=== PATIENT | male | born 1930 | race Caucasian/White ===

== ENCOUNTER 2016-07-08 19:48 | Emergency (ER) | payer MEDICARE, OTHER ==
[2016-07-08] MEDS ORDERED: Sodium Chloride 0.9% 10 ML Syringe FLUSH PRN (20:11)
[2016-07-08 20:14] VITALS: BP 149/54
[2016-07-08] MEDS ORDERED: Dextrose 5%-0.45% NaCl 1,000 ML IV SCH (20:15)
--- NOTE | 2016-07-08 21:20 | CT ---
Head CT Technique: Multiple axial sections through the brain were obtained. Intravenous contrast was not utilized. Comparison: No previous intracranial imaging. Findings: Ventricles along the basal cisterns and sulci over the convexities are moderately prominent. Several old lacunar infarcts are noted within the basal ganglia. Diminished density is noted within the periventricular white matter compatible with small vessel ischemic demyelination change. No other abnormal parenchymal densities are seen. No evidence of intracranial hemorrhage. No midline shift or mass effect is seen. Atherosclerotic calcification is seen within the vertebral vessels and within the carotid siphon. Mild to moderate mucosal thickening is noted within the maxillary and ethmoid sinuses as well as frontal sinuses and sphenoid sinus. Minimal mucosal thickening is seen inferiorly within the right mastoid sinus. Middle ear cavities are clear. No acute calvarial abnormality is identified. Impression: 1. Sinus findings likely chronic. 2. Senescent change as described above. 3. No acute intracranial abnormality is identified. Diagnostic code #2
--- NOTE | 2016-07-08 22:23 | EDM.PDOC ---
ED HPI DIABETIC EMERGENCY - General Chief Complaint: Diabetic Complaint Stated Complaint: [facility] Time Seen by Provider: 07/08/16 20:06 Source of Information: Reports: Patient, EMS, Family History Limitations: Reports: No limitations - History of Present Illness INITIAL COMMENTS - FREE TEXT/NARRATIVE: The patient presents post hyperglycemic episode with seizure. He got 5 units of insulin at 1630 for dinner. He did not eat much of his dinner and the was found on the floor not able to speak with a blood sugar of 54. He had 3 seizures lasting about 15 seconds each. When EMS arrived, his blood sugar was 58. They started an IV and gave him D50. When he arrived to our facility his blood sugar was 80 and he was talking and he said he feels better. He denies any pain. He has no fever, chills, chest pain, shortness of breath, or abdominal pain. He has not been this low before. Timing/Duration: Reports: Minutes: Location, General: Reports: generalized Severity: moderate Improves with: Reports: None Worsens with: Reports: None Associated Symptoms: Reports: cough. Denies: headaches, shortness of breath, fever/chills, loss of appetite, nausea/vomiting Most Recent Blood Sugar: 8 - Related Data Allergies/ADRs: Allergies Allergy/AdvReac Type Severity Reaction Status Date / Time No Known Allergies Allergy Verified 07/08/16 20:14 Home Meds: Home Meds Allopurinol 200 mg PO DAILY 11/21/14 [History] Carvedilol [Coreg] 6.25 mg PO BID 11/21/14 [History] Fluticasone Propionate [Flonase] 1 spray NASBOTH DAILY 11/21/14 [History] Furosemide [Lasix] 80 mg PO DAILY 11/21/14 [History] Insulin Aspart [NovoLOG] 4 units SQ ACLUNCH 11/21/14 [History] Insulin Glarg,Human.Rec.Analog [LantUS Solostar] 9 units SQ DAILY 11/21/14 [ History] Isosorbide Mononitrate [Imdur] 30 mg PO DAILY 11/21/14 [History] Melatonin 3 mg PO BEDTIME PRN 11/21/14 [History] PEG 400/Propylene Glycol [Systane Lubricant] 1 drop EYEBOTH BID 11/21/14 [ History] atorvaSTATin [Lipitor] 40 mg PO DAILY 11/21/14 [History] rOPINIRole HCl [Requip] 0.25 mg PO BID 11/21/14 [History] Polyethylene Glycol 3350 [MiraLAX] 17 gm PO DAILY 11/24/14 [History] Calcitriol [Rocaltrol] 0.25 mcg PO DAILY 11/22/15 [History] Cholecalciferol (Vitamin D3) [Vitamin D] 1,000 unit PO DAILY 11/22/15 [History] Insulin Aspart [Novolog] 5 unit SQ BID 11/22/15 [History] Magnesium Oxide 400 mg PO DAILY 11/22/15 [History] Pantoprazole [Protonix] 40 mg PO DAILY 11/22/15 [History] Glimepiride [Amaryl] 2 mg PO DAILY 12/04/15 [History] Acetaminophen 650 mg PO DAILY 03/24/16 [History] Aspirin 1 tab PO DAILY 03/24/16 [History] Dextromethorphan HBr [Tussin Cough] 15 mg PO QID 03/24/16 [History] Ferrous Sulfate 1 tab PO DAILY 03/24/16 [History] Furosemide [Lasix] 40 mg PO ACLUNCH 03/24/16 [History] Tamsulosin HCl 1 tab PO DAILY 03/24/16 [History] Apixaban [Eliquis] 2.5 mg PO BID #60 tablet 05/22/16 [Rx] Hydrocortisone [Hydrocortisone 2.5% Crm] 1 dose TOP BID 05/22/16 [History] Past Medical History HEENT History: Reports: Impaired vision Other HEENT History: USES GLASSES Cardiovascular History: Reports: Heart Failure, Hypertension, Other (see below) Other Cardiovascular History: Imlanted defibilator, hx Vtach, Respiratory History: Reports: Sleep apnea Other Respiratory History: persistant cough Genitourinary History: Reports: Other (see below) Other Genitourinary History: chronic renal insufficiency. Hasn't started Hemodialysis treatments YET. Musculoskeletal History: Reports: Other (see below) Other Musculoskeletal History: recent falling Neurological History: Reports: Neuropathy, peripheral Endocrine/Metabolic History: Reports: Diabetes, type II Other Endocrine/Metabolic History: GETS INSULIN BID Hematologic History: Reports: Iron deficiency Other Hematologic History: has gotten iron infusions. Oncologic (Cancer) History: Reports: Colon, Other (see below) Other Oncologic History: cancerous polyup removed. - Infectious Disease History Infectious Disease History: Reports: Chicken pox, Measles, Mumps - Past Surgical History HEENT Surgical History: Reports: Tonsillectomy Other Cardiovascular Surgeries/Procedures: PACEMAKER/AICD implantation GI Surgical History: Reports: Other (see below) Other GI Surgeries/Procedures: Colon resection, polyp removed. Other Musculoskeletal Surgeries/Procedures:: USES SINGLE POINT CANE Social & Family History - Family History Family Medical History: Noncontributory - Tobacco Use Smoking Status *Q: Never Smoker Second Hand Smoke Exposure: No - Caffeine Use Caffeine Use: Reports: Coffee - Recreational Drug Use Recreational Drug Use: No - Living Situation & Occupation Living situation: Reports: Occupation: retired ED ROS GENERAL - Review of Systems Review Of Systems: See Below Constitutional: Reports: no symptoms HEENT: Reports: No symptoms Respiratory: Reports: No Symptoms Cardiovascular: Reports: No symptoms Endocrine: Reports: no symptoms GI/Abdominal: Reports: No symptoms : Reports: no symptoms Musculoskeletal: Reports: no symptoms Skin: Reports: no symptoms ED EXAM GENERAL NO PERIP PULSE - Physical Exam Exam: See Below Exam Limited By: No limitations General Appearance: alert, no apparent distress Ears: normal external exam Nose: normal inspection Throat/Mouth: Other (Abrasion to his lower lip) Head: atraumatic, normocephalic Neck: normal inspection Respiratory/Chest: no respiratory distress, lungs clear, normal breath sounds Cardiovascular: regular rate, rhythm, no edema, no murmur GI/Abdominal: soft, non tender, no organomegaly, no mass Extremities: normal inspection Neurological: alert, oriented, no motor/sensory deficits EKG INTERPRETATION EKG Date: 07/08/16 Time: 20:32 Rhythm: a-fib Rate (beats/min): 73 [place]: normal QRS: normal ST-T: normal QT: normal EKG Interpretation Comments: PVCs Course - Vital Signs Last Recorded V/S: Last Vital Signs Temp 97.7 F 07/08/16 19:55 Pulse 62 07/08/16 19:55 Resp 18 07/08/16 19:55 BP 149/54 H 07/08/16 19:55 Pulse Ox 94 L 07/08/16 19:55 - Orders/Labs/Meds Orders: Active Orders 24 hr Category Date Time Status Cardiac Monitoring [RC] . DIRECTED Care 07/08/16 20:11 Active EKG Documentation Completion [RC] STAT Care 07/08/16 20:12 Active Peripheral IV Care [RC] . DIRECTED Care 07/08/16 20:12 Active Dextrose 5%-0.45% NaCl [Dextrose 5%-1/2 NS] 1,000 ml Med 07/08/16 20:15 Active IV ASDIRECTED Sodium Chloride 0.9% [Saline Flush] Med 07/08/16 20:11 Active 10 ml FLUSH ASDIRECTED PRN Peripheral IV Insertion Adult [OM.PC] Stat Oth 07/08/16 20:11 Ordered Medication Orders Dextrose/Sodium Chloride (Dextrose 5%-1/2 Ns) 1,000 mls @ 125 mls/hr IV ASDIRECTED ISAK Last Admin: 07/08/16 20:45 Dose: 125 mls/hr Sodium Chloride (Saline Flush) 10 ml FLUSH ASDIRECTED PRN PRN Reason: Keep Vein Open Last Admin: 07/08/16 20:45 Dose: 10 ml Labs: Laboratory Tests 07/08/16 07/08/16 07/08/16 Range/Units 20:05 20:20 20:20 WBC 2.32 L* (4.23-9.07) K/mm3 RBC 4.36 L (4.63-6.08) M/mm3 Hgb 12.3 L (13.7-17.5) gm/L Hct 40.0 L (40.1-51.0) % MCV 91.7 (79.0-92.2) fl MCH 28.2 (25.7-32.2) pg MCHC 30.8 L (32.2-35.5) g/dl RDW Std Deviation 52.2 H (35.1-43.9) fL Plt Count 79 L (163-337) K/mm3 MPV 12.2 (9.4-12.3) fl Neut % (Auto) 61.6 (34.0-67.9) % Lymph % (Auto) 17.2 L (21.8-53.1) % [place] % (Auto) 15.1 H (5.3-12.2) % Eos % (Auto) 4.3 (0.8-7.0) Baso % (Auto) 0.9 (0.1-1.2) % Neut # 1.43 L (1.78-5.38) K/mm3 Lymph # 0.40 L (1.32-3.57) K/mm3 [place] # 0.35 (0.30-0.82) K/mm3 Eos # 0.10 (0.04-0.54) K/mm3 Baso # 0.02 (0.01-0.08) K/mm3 Manual Slide Review Abnormal smear Sodium 140 (136-145) mEq/L Potassium 3.7 (3.5-5.1) mEq/L Chloride 103 (98-107) mEq/L Carbon Dioxide 32 (21-32) mEq/L Anion Gap 8.7 (5-15) BUN 53 H (7-18) mg/dL Creatinine 2.3 H (0.7-1.3) mg/dL Est Cr Clr Drug Dosing TNP Estimated GFR (MDRD) 27 (>60) mL/min BUN/Creatinine Ratio 23.0 H (14-18) Glucose 72 L (83-115) mg/dL POC Glucose 80 L (83-110) mg/dL Calcium 8.8 (8.5-10.1) mg/dL Total Bilirubin 2.1 H (0.2-1.0) mg/dL AST 67 H (15-37) U/L ALT 42 (16-63) U/L Alkaline Phosphatase 133 H (46-116) U/L Troponin I 0.091 H* (0.00-0.056) ng/mL Total Protein 6.8 (6.4-8.2) g/dl Albumin 3.4 (3.4-5.0) g/dl Globulin 3.4 gm/dL Albumin/Globulin Ratio 1.0 (1-2) Urine Color (Yellow) Urine Appearance (Clear) Urine pH (5.0-8.0) Ur Specific [place] (1.005-1.030) Urine Protein (Negative) Urine Glucose (UA) (Negative) Urine Ketones (Negative) Urine Occult Blood (Negative) Urine Nitrite (Negative) Urine Bilirubin (Negative) Urine Urobilinogen (0.2-1.0) Ur Leukocyte Esterase (Negative) Urine RBC (0-5) /hpf Urine WBC (0-5) /hpf Ur Epithelial Cells (0-5) /hpf Urine Bacteria (FEW) /hpf Urine Mucus (FEW) /hpf 07/08/16 07/08/16 Range/Units 21:50 22:11 WBC (4.23-9.07) K/mm3 RBC (4.63-6.08) M/mm3 Hgb (13.7-17.5) gm/L Hct (40.1-51.0) % MCV (79.0-92.2) fl MCH (25.7-32.2) pg MCHC (32.2-35.5) g/dl RDW Std Deviation (35.1-43.9) fL Plt Count (163-337) K/mm3 MPV (9.4-12.3) fl Neut % (Auto) (34.0-67.9) % Lymph % (Auto) (21.8-53.1) % [place] % (Auto) (5.3-12.2) % Eos % (Auto) (0.8-7.0) Baso % (Auto) (0.1-1.2) % Neut # (1.78-5.38) K/mm3 Lymph # (1.32-3.57) K/mm3 [place] # (0.30-0.82) K/mm3 Eos # (0.04-0.54) K/mm3 Baso # (0.01-0.08) K/mm3 Manual Slide Review Sodium (136-145) mEq/L Potassium (3.5-5.1) mEq/L Chloride (98-107) mEq/L Carbon Dioxide (21-32) mEq/L Anion Gap (5-15) BUN (7-18) mg/dL Creatinine (0.7-1.3) mg/dL Est Cr Clr Drug Dosing Estimated GFR (MDRD) (>60) mL/min BUN/Creatinine Ratio (14-18) Glucose (83-115) mg/dL POC Glucose 105 (83-110) mg/dL Calcium (8.5-10.1) mg/dL Total Bilirubin (0.2-1.0) mg/dL AST (15-37) U/L ALT (16-63) U/L Alkaline Phosphatase (46-116) U/L Troponin I (0.00-0.056) ng/mL Total Protein (6.4-8.2) g/dl Albumin (3.4-5.0) g/dl Globulin gm/dL Albumin/Globulin Ratio (1-2) Urine Color Light yellow (Yellow) Urine Appearance Clear (Clear) Urine pH 6.0 (5.0-8.0) Ur Specific [place] 1.015 (1.005-1.030) Urine Protein 1+ H (Negative) Urine Glucose (UA) Negative (Negative) Urine Ketones Negative (Negative) Urine Occult Blood 1+ H (Negative) Urine Nitrite Negative (Negative) Urine Bilirubin Negative (Negative) Urine Urobilinogen 0.2 (0.2-1.0) Ur Leukocyte Esterase Negative (Negative) Urine RBC 0-5 (0-5) /hpf Urine WBC 0-5 (0-5) /hpf Ur Epithelial Cells Not seen (0-5) /hpf Urine Bacteria Rare (FEW) /hpf Urine Mucus Not seen (FEW) /hpf Meds: Medications Generic Name Dose Route Start Last Admin Trade Name Freq PRN Reason Stop Dose Admin Dextrose/Sodium Chloride 1,000 mls @ 125 mls/hr 07/08/16 20:15 07/08/16 20:45 Dextrose 5%-1/2 Ns IV 125 mls/hr ASDIRECTED ISAK Administration Sodium Chloride 10 ml 07/08/16 20:11 07/08/16 20:45 Saline Flush FLUSH 10 ml ASDIRECTED PRN Administration Keep Vein Open - Re-Assessments/Exams Free Text/Narrative Re-Assessment/Exam: 07/08/16 22:26 I ordered an IV D5 1/4 NS at 125. My nurse gave him orange juice and some sugar packets. His WBC was low at 2.32. That is low and his doctor is watching that and possibly doing a bone marrow biopsy. His Hgb is a little low at 12.3. His Platelets are low at 79. His creatinine is elevated at 2.3. His glucose is still low at 72. I will give him something more to eat. His troponin is elevated at 0.091. This is from his renal disease. His UA shows no UTI. 07/08/16 22:39 I will reduce his lantus to 8units daily down from 9. I will reduce his evening novolog to 4 and morning to 4 units. Departure - Departure Time of Disposition: 22:40 Disposition: Home, Self-Care 01 Condition: good Clinical Impression: Hypoglycemia, Seizure, Thrombocytopenia, Troponin level elevated, Renal insufficiency Leukopenia Qualifiers: Leukopenia type: neutropenia Neutropenia type: unspecified Qualified Code(s): D70.9 - Neutropenia, unspecified Referrals: Osman Sifuentes MD [Primary Care Provider] - 1 Week Forms: ED Department Discharge Additional Instructions: Reduce your lantus to 8 units daily. Take the novolog before each meal and only take 4 units. Please return if you are worse. - My Orders Last 24 Hours: My Active Orders 07/08/16 20:11 Cardiac Monitoring [RC] . DIRECTED Sodium Chloride 0.9% [Saline Flush] 10 ml FLUSH ASDIRECTED PRN Peripheral IV Insertion Adult [OM.PC] Stat 07/08/16 20:12 EKG Documentation Completion [RC] STAT Peripheral IV Care [RC] . DIRECTED 07/08/16 20:15 Dextrose 5%-0.45% NaCl [Dextrose 5%-1/2 NS] 1,000 ml IV ASDIRECTED - Assessment/Plan Last 24 Hours: My Active Orders 07/08/16 20:11 Cardiac Monitoring [RC] . DIRECTED Sodium Chloride 0.9% [Saline Flush] 10 ml FLUSH ASDIRECTED PRN Peripheral IV Insertion Adult [OM.PC] Stat 07/08/16 20:12 EKG Documentation Completion [RC] STAT Peripheral IV Care [RC] . DIRECTED 07/08/16 20:15 Dextrose 5%-0.45% NaCl [Dextrose 5%-1/2 NS] 1,000 ml IV ASDIRECTED
== END 2016-07-08 23:10 | disposition home or self-care (01) ==
LOC: JD.ED 19:48
DX: E11.649 Type 2 diabetes mellitus with hypoglycemia without coma (principal); R56.9 Unspecified convulsions; D70.9 Neutropenia, unspecified; D69.6 Thrombocytopenia, unspecified; R79.89 Other specified abnormal findings of blood chemistry; I50.9 Heart failure, unspecified; I10 Essential (primary) hypertension; I12.9 Hypertensive chronic kidney disease with stage 1 through stage 4 chronic kidney disease, or unspecified chronic kidney disease; N18.9 Chronic kidney disease, unspecified; G62.9 Polyneuropathy, unspecified; E61.1 Iron deficiency; Z79.4 Long term (current) use of insulin; Z79.899 Other long term (current) drug therapy; Z95.810 Presence of automatic (implantable) cardiac defibrillator
CPT/HCPCS: 36415; 70450; 80053; 81001; 82962; 84484; 85025; 93005; J7042; J7050; 96360; 96361; 99284; 99285-25

== ENCOUNTER 2017-07-17 12:45 | Emergency (ER) | payer MEDICARE, OTHER ==
[2017-07-17 13:13] VITALS: BP 116/57
[2017-07-17] MEDS ORDERED: Sodium Chloride 0.9% 10 ML Syringe FLUSH PRN (14:10)
--- NOTE | 2017-07-17 14:14 | EDM.PDOC ---
ED HPI GENERAL MEDICAL PROBLEM - General Chief Complaint: Skin Complaint Stated Complaint: FEVER, SORE ON LEFT HAND Time Seen by Provider: 07/17/17 14:00 Source of Information: Reports: Patient History Limitations: Reports: No Limitations - History of Present Illness INITIAL COMMENTS - FREE TEXT/NARRATIVE: 87-year-old male presents for evaluation and treatment of a sore to the left hand and a fever. Reportedly the patient fell approximately 1 week ago. Apparently he is a resident of [facility]. Another resident in from and fell causing him to fall. They believe he hit his hand on his walker. He now has an open area, swelling, increased warmth and redness to the left hand. He has decreased range of motion is unable to make a fist. Reportedly has a temperature [facility], his daughters provided most the history, and they are unsure how high his temperature was. They report that Trudi called around 11 AM today. It did take the walking clinic both sent to us. Reports he has had a productive cough the last 1-2 weeks. No nausea or vomiting. Per [facility] reports to the daughter his blood pressure was running high. He is on medications for hypertension. The patient is a diabetic. Patient has a fistula to the left arm, not currently on dialysis. This was placed in case he needed dialysis. Location: Reports: Upper Extremity, Left - Related Data Allergies Allergy/AdvReac Type Severity Reaction Status Date / Time No Known Allergies Allergy Verified 07/17/17 13:13 Home Meds: Home Meds Allopurinol 200 mg PO DAILY 11/21/14 [History] Carvedilol [Coreg] 6.25 mg PO BID 11/21/14 [History] Fluticasone Propionate [Flonase] 1 spray NASBOTH DAILY 11/21/14 [History] Furosemide [Lasix] 80 mg PO DAILY 11/21/14 [History] Insulin Glarg,Human.Rec.Analog [LantUS Solostar] 8 units SQ DAILY 11/21/14 [ History] Isosorbide Mononitrate [Imdur] 30 mg PO DAILY 11/21/14 [History] Melatonin 3 mg PO BEDTIME PRN 11/21/14 [History] PEG 400/Propylene Glycol [Systane Lubricant] 1 drop EYEBOTH BID 11/21/14 [ History] atorvaSTATin [Lipitor] 40 mg PO DAILY 11/21/14 [History] rOPINIRole HCl [Requip] 0.25 mg PO BID 11/21/14 [History] Polyethylene Glycol 3350 [MiraLAX] 17 gm PO DAILY 11/24/14 [History] Calcitriol [Rocaltrol] 0.25 mcg PO DAILY 11/22/15 [History] Cholecalciferol (Vitamin D3) [Vitamin D] 1,000 unit PO DAILY 11/22/15 [History] Magnesium Oxide 400 mg PO DAILY 11/22/15 [History] Pantoprazole [ProTONIX] 40 mg PO DAILY 11/22/15 [History] Glimepiride [Amaryl] 2 mg PO DAILY 12/04/15 [History] Acetaminophen 650 mg PO Q6HR PRN 03/24/16 [History] Aspirin 1 tab PO DAILY 03/24/16 [History] Dextromethorphan HBr [Tussin Cough] 15 mg PO QID PRN 03/24/16 [History] Ferrous Sulfate 1 tab PO DAILY 03/24/16 [History] Furosemide [Lasix] 40 mg PO BEDTIME 03/24/16 [History] Tamsulosin HCl 1 tab PO DAILY 03/24/16 [History] Apixaban [Eliquis] 2.5 mg PO BID #60 tablet 05/22/16 [Rx] Hydrocortisone [Hydrocortisone 2.5% Crm] 1 dose TOP BID 05/22/16 [History] Insulin Aspart [Novolog Flexpen] 6 units SQ TIDMEALS 07/17/17 [History] amLODIPine Besylate [Norvasc] 5 mg PO DAILY 07/17/17 [History] Past Medical History HEENT History: Reports: Impaired Vision Other HEENT History: USES GLASSES Cardiovascular History: Reports: Afib, Cardiomyopathy, Heart Failure, High Cholesterol, Hypertension, Pacemaker, Other (See Below) Other Cardiovascular History: Imlanted defibilator, hx Vtach, Respiratory History: Reports: Sleep Apnea Other Respiratory History: persistant cough Genitourinary History: Reports: Other (See Below) Other Genitourinary History: chronic renal insufficiency. Hasn't started Hemodialysis treatments YET. Musculoskeletal History: Reports: Other (See Below) Other Musculoskeletal History: recent falling Neurological History: Reports: Neuropathy, Peripheral Endocrine/Metabolic History: Reports: Diabetes, Type II Other Endocrine/Metabolic History: GETS INSULIN BID Hematologic History: Reports: Iron Deficiency, Other (See Below) Other Hematologic History: low vitamin D Oncologic (Cancer) History: Reports: Colon Other Oncologic History: cancerous polyup removed. - Infectious Disease History Infectious Disease History: Reports: Chicken Pox, Measles, Mumps - Past Surgical History GI Surgical History: Reports: Other (See Below) Social & Family History - Family History Family Medical History: Noncontributory - Tobacco Use Smoking Status *Q: Never Smoker Second Hand Smoke Exposure: No - Caffeine Use Caffeine Use: Reports: Coffee - Recreational Drug Use Recreational Drug Use: No - Living Situation & Occupation Living situation: Reports: Occupation: Retired ED ROS GENERAL - Review of Systems Review Of Systems: See Below Constitutional: Reports: Fever Respiratory: Reports: Cough, Sputum GI/Abdominal: Denies: Abdominal Pain, Nausea, Vomiting Musculoskeletal: Reports: Hand Pain, Joint Swelling (hand) Skin: Reports: Pruritis (left buttocks and left elbow), Wound (left hand) Neurological: Denies: Numbness, Tingling ED EXAM, SKIN/RASH Exam: See Below Exam Limited By: No Limitations General Appearance: Alert, WD/WN, No Apparent Distress Ears: Normal External Exam Throat/Mouth: Normal Inspection, Normal Voice, No Airway Compromise Respiratory/Chest: No Respiratory Distress, Lungs Clear, Normal Breath Sounds Cardiovascular: Normal Peripheral Pulses, No Murmur, Irregularly Irregular GI/Abdominal: Normal Bowel Sounds, Soft, Non-Tender Extremities: Normal Capillary Refill, Other (left hand swelling, erythema to the left hand and forearm; limited ROM to the left hand - unable to make a fist ; palpable thrill to the left forearm from fistula) Neurological: Alert, Oriented, Normal Cognition Psychiatric: Normal Affect, Normal Mood Skin: Warm, Dry, Erythema, Wound/Incision (approximately 2cm in diameter open wound to the dorsal left hand) Location, Skin: Upper Extremity, Left Associated features: Warmth, Tenderness, Swelling, Weeping (clear fluid) Course - Vital Signs Last Recorded V/S: Last Vital Signs Temp 37.4 C 07/17/17 13:10 Pulse 70 07/17/17 13:10 Resp 18 07/17/17 13:10 BP 116/57 L 07/17/17 13:10 Pulse Ox 97 07/17/17 13:10 - Orders/Labs/Meds Orders: Active Orders 24 hr Category Date Time Status Cardiac Monitoring [RC] . DIRECTED Care 07/17/17 14:11 Active Peripheral IV Care [RC] . DIRECTED Care 07/17/17 14:10 Active Chest 2V [CR] Stat Exams 07/17/17 14:10 Taken Hand Comp Min 3V Lt [CR] Stat Exams 07/17/17 14:10 Taken CULTURE BLOOD [BC] Stat Lab 07/17/17 15:00 Received CULTURE BLOOD [BC] Stat Lab 07/17/17 15:10 Received CULTURE WOUND [RM] Stat Lab 07/17/17 14:10 Received UA W/MICROSCOPIC [URIN] Stat Lab 07/17/17 15:43 Ordered Sodium Chloride 0.9% [Normal Saline] 1,000 ml Med 07/17/17 17:11 Ordered IV ONETIME Sodium Chloride 0.9% [Saline Flush] Med 07/17/17 14:10 Active 10 ml FLUSH ASDIRECTED PRN Blood Culture x2 Reflex Set [OM.PC] Stat Oth 07/17/17 14:10 Ordered Peripheral IV Insertion Adult [OM.PC] Routine Oth 07/17/17 14:09 Ordered Medication Orders Sodium Chloride (Normal Saline) 1,000 mls @ 100 mls/hr IV ONETIME ONE Stop: 07/18/17 03:10 Last Admin: 07/17/17 17:24 Dose: 100 mls/hr Sodium Chloride (Saline Flush) 10 ml FLUSH ASDIRECTED PRN PRN Reason: Keep Vein Open Last Admin: 07/17/17 14:27 Dose: 10 ml Labs: Laboratory Tests 07/17/17 07/17/17 07/17/17 Range/Units 14:20 14:20 15:00 WBC 16.28 H (4.23-9.07) K/mm3 RBC 4.03 L (4.63-6.08) M/mm3 Hgb 12.5 L (13.7-17.5) gm/L Hct 39.0 L (40.1-51.0) % MCV 96.8 H (79.0-92.2) fl MCH 31.0 (25.7-32.2) pg MCHC 32.1 L (32.2-35.5) g/dl RDW Std Deviation 49.4 H (35.1-43.9) fL Plt Count 117 L (163-337) K/mm3 MPV 9.7 (9.4-12.3) fl Neutrophils % (Manual) 78 H (40-60) % Band Neutrophils % 0 (0-10) % Lymphocytes % (Manual) 17 L (20-40) % Atypical Lymphs % 0 % Monocytes % (Manual) 5 (2-10) % Eosinophils % (Manual) 0 L (0.8-7.0) % Basophils % (Manual) 0 L (0.2-1.2) Platelet Estimate Decreased Plt Morphology Comment See note Poikilocytosis 1+ slight Anisocytosis 1+ slight Ovalocytes 1+ slight RBC Morph Comment Not Reportable Sodium 135 L (136-145) mEq/L Potassium 4.5 (3.5-5.1) mEq/L Chloride 98 (98-107) mEq/L Carbon Dioxide 33 H (21-32) mEq/L Anion Gap 8.5 (5-15) BUN 50 H (7-18) mg/dL Creatinine 2.3 H (0.7-1.3) mg/dL Est Cr Clr Drug Dosing 21.48 mL/min Estimated GFR (MDRD) 27 (>60) mL/min BUN/Creatinine Ratio 21.7 H (14-18) Glucose 84 (83-115) mg/dL Lactic Acid 1.5 (0.4-2.0) mmol/L Calcium 8.8 (8.5-10.1) mg/dL Total Bilirubin 3.4 H (0.2-1.0) mg/dL AST 27 (15-37) U/L ALT 27 (16-63) U/L Alkaline Phosphatase 104 (46-116) U/L C-Reactive Protein 11.0 H* (<1.0) mg/dL Total Protein 6.1 L (6.4-8.2) g/dl Albumin 2.5 L (3.4-5.0) g/dl Globulin 3.6 gm/dL Albumin/Globulin Ratio 0.7 L (1-2) Meds: Medications Generic Name Dose Route Start Last Admin Trade Name Freq PRN Reason Stop Dose Admin Sodium Chloride 1,000 mls @ 100 mls/hr 07/17/17 17:11 07/17/17 17:24 Normal Saline IV 07/18/17 03:10 100 mls/hr ONETIME ONE Administration Sodium Chloride 10 ml 07/17/17 14:10 07/17/17 14:27 Saline Flush FLUSH 10 ml ASDIRECTED PRN Administration Keep Vein Open Discontinued Medications Generic Name Dose Route Start Last Admin Trade Name Jagdeep PRN Reason Stop Dose Admin Clindamycin Phosphate 600 mg/ 104 mls @ 100 mls/hr 07/17/17 15:03 07/17/17 15 :13 Sodium Chloride IV 07/17/17 16:05 100 mls/hr ONETIME ONE Administration - Re-Assessments/Exams Free Text/Narrative Re-Assessment/Exam: 07/17/17 17:20 Influenza returned positive for type A. Blood cultures are pending. Wound cultures pending. Reviewed the patient's records show his creatinine has been around the lower twos. Discussed the case with Dr. Reno, hospice on-call. She refuses the admission. She would like him to be sent where he can be evaluated by hand surgeon. Parents discuss with the patient's daughters. They would like to go to [facility]. Patient sees nephrology cardiology at [facility]. 07/17/17 17:[address] Segura, hospitalist on-call [facility]. He agrees to accept the patient. 07/17/17 18:03 Staff had him get up and use the commode. He has a small bowel movement and urinated. They did appreciate some bruising to his buttocks, likely from his fall earlier in the week. Temp rechecked and was 98. Departure - Departure Time of Disposition: 18:07 Disposition: DC/Tfer to Acute Hospital 02 Condition: Fair Clinical Impression: Cellulitis, Influenza B, Renal insufficiency, Diabetes - Discharge Information Referrals: Osman Sifuentes MD [Primary Care Provider] - Forms: ED Department Discharge Additional Instructions: Patient to be transported by ground EMS to [facility]. Hospitalist , Dr. De La Rosa accepting. He is a direct admission. - My Orders Last 24 Hours: My Active Orders 07/17/17 14:09 Peripheral IV Insertion Adult [OM.PC] Routine 07/17/17 14:10 Peripheral IV Care [RC] . DIRECTED Chest 2V [CR] Stat Hand Comp Min 3V Lt [CR] Stat CULTURE WOUND [RM] Stat Sodium Chloride 0.9% [Saline Flush] 10 ml FLUSH ASDIRECTED PRN Blood Culture x2 Reflex Set [OM.PC] Stat 07/17/17 14:11 Cardiac Monitoring [RC] . DIRECTED 07/17/17 15:00 CULTURE BLOOD [BC] Stat 07/17/17 15:10 CULTURE BLOOD [BC] Stat 07/17/17 15:43 UA W/MICROSCOPIC [URIN] Stat 07/17/17 17:11 Sodium Chloride 0.9% [Normal Saline] 1,000 ml IV ONETIME - Assessment/Plan Last 24 Hours: My Active Orders 07/17/17 14:09 Peripheral IV Insertion Adult [OM.PC] Routine 07/17/17 14:10 Peripheral IV Care [RC] . DIRECTED Chest 2V [CR] Stat Hand Comp Min 3V Lt [CR] Stat CULTURE WOUND [RM] Stat Sodium Chloride 0.9% [Saline Flush] 10 ml FLUSH ASDIRECTED PRN Blood Culture x2 Reflex Set [OM.PC] Stat 07/17/17 14:11 Cardiac Monitoring [RC] . DIRECTED 07/17/17 15:00 CULTURE BLOOD [BC] Stat 07/17/17 15:10 CULTURE BLOOD [BC] Stat 07/17/17 15:43 UA W/MICROSCOPIC [URIN] Stat 07/17/17 17:11 Sodium Chloride 0.9% [Normal Saline] 1,000 ml IV ONETIME
[2017-07-17] MEDS ORDERED: Clindamycin Phosphate 600 MG in Sodium Chloride 0.9% 100 ML IV ONE (15:03)
[2017-07-17] MEDS ORDERED: Sodium Chloride 0.9% 1,000 ML IV ONE (17:11)
--- NOTE | 2017-07-18 12:48 | CR ---
Left hand: Four views of the left hand were obtained. Comparison: No prior hand exam. Soft tissue swelling is identified. Vascular calcification is noted. Joint space narrowing is scattered within the MCP, PIP and DIP joints. Calcifications are seen off the distal second metacarpal head as well as at the base of the proximal phalanx of the fifth digit which are dystrophic and incidental. Small metallic foreign body is projected at the base of the thumb. No acute bony abnormality is seen. Impression: 1. Degenerative change and other incidental findings. No acute bony abnormality is seen. Diagnostic code #2
--- NOTE | 2017-07-18 12:48 | CR ---
Chest: Two views of the chest are obtained. Comparison: Prior chest x-ray of 05/22/16. Heart is enlarged. Pulmonary vessels are slightly congested. Lungs otherwise are clear. AICD is present. Diaphragms are flattened on the lateral view compatible with emphysematous change. Degenerative spurring is noted within the spine. Atherosclerotic change is seen within the thoracic aorta. Impression: 1. Emphysematous change. 2. Cardiomegaly and slight pulmonary vascular congestion. 3. Other incidental findings. Diagnostic code #3
== END 2017-07-17 18:10 ==
LOC: JD.ED 12:45
DX: L03.114 Cellulitis of left upper limb (principal); J10.1 Influenza due to other identified influenza virus with other respiratory manifestations; N28.9 Disorder of kidney and ureter, unspecified; E11.9 Type 2 diabetes mellitus without complications; I11.0 Hypertensive heart disease with heart failure; I50.9 Heart failure, unspecified; I48.91 Unspecified atrial fibrillation; Z79.82 Long term (current) use of aspirin; Z79.4 Long term (current) use of insulin; Z79.899 Other long term (current) drug therapy
CPT/HCPCS: 36415; 71046; 73130; 80053; 83605; 85025; 86140; 87040; 87070; 87077; 87184; 87186; 87804; 96361; 96365; 99285; J7030; J7040; J7050; 99284

== ENCOUNTER 2017-09-14 09:21 | Emergency (ER) | payer MEDICARE, OTHER ==
[2017-09-14] MEDS ORDERED: cefTRIAXone 2 GM in Sodium Chloride 0.9% 100 ML IV ONE (10:28)
--- NOTE | 2017-09-14 13:22 | EDM.PDOC ---
ED HPI GENERAL MEDICAL PROBLEM - General Chief Complaint: Respiratory Problem Stated Complaint: SENT BY DR. BARONE Time Seen by Provider: 09/14/17 10:28 Source of Information: Reports: Patient, Family (Son, [id number], grandson) History Limitations: Reports: Physical Impairment (Some confusion) - History of Present Illness INITIAL COMMENTS - FREE TEXT/NARRATIVE: Significant delay in evaluating the patient due to managing a critically ill patient in trauma 2. The patient's family states that the patient was admitted to [facility] on 07/17/2017 for influenza B and a hand infection. He states for 3-4 days. They state that he since developed a dry cough 1-2 weeks ago. No recent fever, chest pain, palpitations, nausea, vomiting, constipation, or diarrhea. The patient has had dyspnea on exertion for the past 5-6 months. The patient was seen by his PCP, Dr. Barone, this morning. A chest radiograph apparently demonstrated a left lower lobe infiltrate, although we do not have access to that chest radiograph image. According to the patient's family, no blood work was done. The patient was directed to the ED to arrange for admission to the hospital. Shortly after arrival to the ED, the patient was started on IV Rocephin. - Related Data Allergies Allergy/AdvReac Type Severity Reaction Status Date / Time No Known Allergies Allergy Verified 09/14/17 09:48 Home Meds: Home Meds Allopurinol 200 mg PO DAILY 11/21/14 [History] Carvedilol [Coreg] 6.25 mg PO BID 11/21/14 [History] Fluticasone Propionate [Flonase] 1 spray NASBOTH DAILY 11/21/14 [History] Furosemide [Lasix] 80 mg PO DAILY 11/21/14 [History] Insulin Glarg,Human.Rec.Analog [LantUS Solostar] 8 units SQ DAILY 11/21/14 [ History] Isosorbide Mononitrate [Imdur] 30 mg PO DAILY 11/21/14 [History] Melatonin 3 mg PO BEDTIME PRN 11/21/14 [History] atorvaSTATin [Lipitor] 40 mg PO DAILY 11/21/14 [History] rOPINIRole HCl [Requip] 0.25 mg PO BID 11/21/14 [History] Calcitriol [Rocaltrol] 0.25 mcg PO DAILY 11/22/15 [History] Cholecalciferol (Vitamin D3) [Vitamin D] 1,000 unit PO DAILY 11/22/15 [History] Magnesium Oxide 400 mg PO DAILY 11/22/15 [History] Pantoprazole [ProTONIX] 40 mg PO DAILY 11/22/15 [History] Glimepiride [Amaryl] 2 mg PO DAILY 12/04/15 [History] Acetaminophen 650 mg PO Q6HR PRN 03/24/16 [History] Aspirin 81 mg PO DAILY 03/24/16 [History] Dextromethorphan HBr [Tussin Cough] 15 mg PO QID PRN 03/24/16 [History] Ferrous Sulfate 325 mg PO DAILY 03/24/16 [History] Furosemide [Lasix] 40 mg PO BEDTIME 03/24/16 [History] Tamsulosin HCl 0.4 mg PO DAILY 03/24/16 [History] Insulin Aspart [Novolog Flexpen] 4 units SQ TIDMEALS 07/17/17 [History] Azithromycin [Zithromax] 1 tab PO DAILY #4 tab 09/14/17 [Rx] Polyethylene Glycol 3350 [MiraLAX] 17 gm PO DAILY 09/14/17 [History] Propylene Glycol/Peg 400 [Systane 0.3-0.4% Eye Drops] 1 drop EYEBOTH BID [History] Past Medical History HEENT History: Reports: Impaired Vision Other HEENT History: USES GLASSES Cardiovascular History: Reports: Afib (chronic), Arrhythmia (V-tach), CAD, Heart Failure, High Cholesterol, Hypertension Respiratory History: Reports: Sleep Apnea Genitourinary History: Reports: Chronic Renal Insuffiency Musculoskeletal History: Reports: Gout Neurological History: Reports: Neuropathy, Diabetic Endocrine/Metabolic History: Reports: Diabetes, Type II, Vitamin D Deficiency Hematologic History: Reports: Iron Deficiency - Infectious Disease History Infectious Disease History: Reports: Chicken Pox, Measles, Mumps - Past Surgical History HEENT Surgical History: Reports: Cataract Surgery, Tonsillectomy Cardiovascular Surgical History: Reports: AICD, Coronary Artery Stent (x 1), Vascular Surgery (left forearm AVF) GI Surgical History: Reports: Colonoscopy Social & Family History - Family History Family Medical History: Noncontributory - Tobacco Use Smoking Status *Q: Never Smoker Second Hand Smoke Exposure: No - Caffeine Use Caffeine Use: Reports: None - Alcohol Use Alcohol Use History: Yes Alcohol Use Frequency: Rarely - Recreational Drug Use Recreational Drug Use: No - Living Situation & Occupation Living situation: Reports: , Assisted Living ([place]) Occupation: Retired ED ROS GENERAL - Review of Systems Review Of Systems: ROS reveals no pertinent complaints other than HPI. ED EXAM, GENERAL - Physical Exam Exam: See Below Exam Limited By: No Limitations General Appearance: Alert, WD/WN, No Apparent Distress Eye Exam: Bilateral Eye: Normal Inspection Ears: Normal External Exam, Hearing Grossly Normal Nose: Normal Inspection, No Blood Throat/Mouth: Normal Inspection, Normal Lips, Normal Voice, No Airway Compromise Head: Atraumatic, Normocephalic Neck: Normal Inspection, Full Range of Motion Respiratory/Chest: No Respiratory Distress, No Accessory Muscle Use, Rhonchi ( throughout all lung roberts). No: Crackles, Wheezing Cardiovascular: Normal Peripheral Pulses, No Gallop, No JVD, No Murmur, No Rub, Irregularly Irregular (regular rate) Peripheral Pulses: 4+: Radial (L), Radial (R) GI/Abdominal: Normal Bowel Sounds, Soft, Non-Tender, No Organomegaly, No Distention, No Abnormal Bruit, No Mass, Other (Obese) (Male) Exam: Deferred Rectal (Males) Exam: Deferred Back Exam: Normal Inspection, Full Range of Motion, NT Extremities: Normal Inspection, Normal Range of Motion, Non-Tender, Normal Capillary Refill, Other (2+ pretibial edema bilaterally) Neurological: Alert, No Motor/Sensory Deficits, Confused Psychiatric: Normal Affect Skin Exam: Warm, Dry, Intact, Normal Color, No Rash EKG INTERPRETATION EKG Date: 09/14/17 Time: 13:34 Rhythm: A-Fib Rate (Beats/Min): 81 Abrams: LAD-Left Abrams Deviation P-Wave: Absent QRS: Normal ST-T: Depressed (ST depression in II, V5, V6) QT: Normal Comparison: Change From Previous EKG (ECG 07/08/2016 with incomplete RBBB. Also had ST depression in V5, V6.) Course - Vital Signs Last Recorded V/S: Last Vital Signs Temp 36.5 C 09/14/17 09:25 Pulse 79 09/14/17 09:25 Resp 26 H 09/14/17 09:25 BP 169/95 H 09/14/17 09:25 Pulse Ox 92 L 09/14/17 09:25 - Orders/Labs/Meds Orders: Active Orders 24 hr Category Date Time Status EKG Documentation Completion [RC] STAT Care 09/14/17 13:09 Active CULTURE BLOOD [BC] Stat Lab 09/14/17 13:09 Ordered CULTURE BLOOD [BC] Stat Lab 09/14/17 13:09 Ordered Blood Culture x2 Reflex Set [OM.PC] Stat Oth 09/14/17 13:09 Ordered Labs: Laboratory Tests 09/14/17 09/14/17 09/14/17 Range/Units 11:54 14:30 14:30 WBC 6.52 (4.23-9.07) K/mm3 RBC 4.28 L (4.63-6.08) M/mm3 Hgb 13.2 L (13.7-17.5) gm/L Hct 41.0 (40.1-51.0) % MCV 95.8 H (79.0-92.2) fl MCH 30.8 (25.7-32.2) pg MCHC 32.2 (32.2-35.5) g/dl RDW Std Deviation 49.4 H (35.1-43.9) fL Plt Count 122 L (163-337) K/mm3 MPV 10.6 (9.4-12.3) fl Neutrophils % (Manual) 80 H (40-60) % Band Neutrophils % 0 (0-10) % Lymphocytes % (Manual) 16 L (20-40) % Atypical Lymphs % 0 % Monocytes % (Manual) 2 (2-10) % Eosinophils % (Manual) 2 (0.8-7.0) % Basophils % (Manual) 0 L (0.2-1.2) Platelet Estimate Adequate Plt Morphology Comment Normal Poikilocytosis 1+ slight Anisocytosis 1+ slight RBC Morph Comment Not Reportable Sodium 137 (136-145) mEq/L Potassium 3.8 (3.5-5.1) mEq/L Chloride 100 (98-107) mEq/L Carbon Dioxide 29 (21-32) mEq/L Anion Gap 11.8 (5-15) BUN 59 H (7-18) mg/dL Creatinine 1.9 H (0.7-1.3) mg/dL Est Cr Clr Drug Dosing 24.25 mL/min Estimated GFR (MDRD) 34 (>60) mL/min BUN/Creatinine Ratio 31.1 H (14-18) Glucose 169 H (83-115) mg/dL POC Glucose 111 H (83-110) mg/dL Calcium 9.1 (8.5-10.1) mg/dL Total Bilirubin 1.9 H (0.2-1.0) mg/dL AST 41 H (15-37) U/L ALT 44 (16-63) U/L Alkaline Phosphatase 130 H (46-116) U/L Total Protein 6.7 (6.4-8.2) g/dl Albumin 2.7 L (3.4-5.0) g/dl Globulin 4.0 gm/dL Albumin/Globulin Ratio 0.7 L (1-2) Meds: Medications Discontinued Medications Generic Name Dose Route Start Last Admin Trade Name Freq PRN Reason Stop Dose Admin Ceftriaxone Sodium 2 gm/ 100 mls @ 100 mls/hr 09/14/17 10:28 09/14/17 10:54 Sodium Chloride IV 09/14/17 11:27 100 mls/hr ONETIME ONE Administration - Re-Assessments/Exams Free Text/Narrative Re-Assessment/Exam: 09/14/17 13:51 2-view chest radiograph reviewed. There is cardiomegaly, but no pulmonary vascular congestion or pleural effusions to suggest decompensated CHF. No focal infiltrate. No pneumothorax. Hyperinflation and bilateral diaphragmatic flattening, consistent with COPD, noted. Scoliosis is incidentally noted. Bilateral costal calcinosis is incidentally noted. There is a left-sided dual- chamber AICD. Formal read per the Radiologist pending. 09/14/17 13:57 As the patient was sent to the ED for admission for left lower lobe pneumonia, and I do not see an infiltrate, I had Dr. Stone review the chest radiograph images. His read is the same as rocky. He does not see an infiltrate, either. 09/14/17 14:59 The patient does not have an elevated WBC count. The patient's BUN/Cr are elevated at 59/1.9. His total bilirubin is elevated at 1.9. The remainder of his CMP is unremarkable. Review of prior labs indicates that the renal insufficiency and elevated bilirubin are chronic, currently improved over prior values. As the patient does not have an elevated WBC count, and has no infiltrate on his chest x-ray, does not have a fever, and is nothypoxic, he does not have pneumonia. I do not see an indication for admission to the hospital. Dr. Barone has been paged. I'm told that he is out of the office, but will call at some point. 09/14/17 15:53 We were able to reach the patient's daughter. I explained to the daughter that the patient does not have pneumonia, and therefore I do not have an indication to admit the patient to the hospital. She will come to get the patient in about half an hour. 09/14/17 16:[address] Barone. He stated that he did not personally see the radiograph this one, but was told by the Radiologist at [place] that the patient had a left lower lobe infiltrate. As above, we did not find the same on the chest radiograph performed here, and, as above, the patient does not clinically have pneumonia. Dr. Barone suggested returning the patient to [place] with an oral antibiotic. I will check patient on azithromycin 500 mg po here in the ED, and prescribed an additional 4 days of 250 mg daily. Departure - Departure Time of Disposition: 15:53 Disposition: Home, Self-Care 01 Condition: Fair Clinical Impression: Cough - Discharge Information Prescriptions: Azithromycin [Zithromax] 1 tab PO DAILY #4 tab Referrals: Osman Barone MD [Primary Care Provider] - Forms: ED Department Discharge Additional Instructions: You were seen in the emergency room over concern of having left lower lobe pneumonia. Workup in the ER included blood work, 2 sets of blood cultures, a chest x-ray, and an ECG. Your workup found that you have chronic kidney insufficiency and chronically elevated total bilirubin, but the remainder of her workup was unremarkable. You do not have an elevated white blood cell count. You do not have an infiltrate on your chest x-ray. You do not have pneumonia. You were given IV antibiotics in the ER, and have been started on the oral antibiotic azithromycin. Take one tablet of azithromycin every day, starting tomorrow, 09/15/2017. Finish the entire prescription unless told otherwise by Dr. Barone. Follow-up with Dr. Barone as needed. If any other problems, please do not hesitate to return to the ER. - My Orders Last 24 Hours: My Active Orders 09/14/17 13:09 EKG Documentation Completion [RC] STAT CULTURE BLOOD [BC] Stat CULTURE BLOOD [BC] Stat Blood Culture x2 Reflex Set [OM.PC] Stat - Assessment/Plan Last 24 Hours: My Active Orders 09/14/17 13:09 EKG Documentation Completion [RC] STAT CULTURE BLOOD [BC] Stat CULTURE BLOOD [BC] Stat Blood Culture x2 Reflex Set [OM.PC] Stat
--- NOTE | 2017-09-14 14:34 | CR ---
Chest: Two views of the chest were obtained. Comparison: Prior chest x-ray of 07/17/17. Heart is enlarged. AICD is noted. Lung markings are mildly increased which appear to be chronic. Lungs are hyperinflated compatible with emphysematous change. Degenerative change is scattered within the spine with minimal scoliosis. Impression: 1. Findings as noted above. Nothing acute is definitely appreciated. Diagnostic code #2
[2017-09-14] MEDS ORDERED: Azithromycin 250 MG Tab PO STA (16:37)
[2017-09-14 17:20] VITALS: BP 182/79
== END 2017-09-14 16:54 | disposition home or self-care (01) ==
LOC: JD.ED 09:21
DX: R05 Cough (principal); I13.0 Hypertensive heart and chronic kidney disease with heart failure and stage 1 through stage 4 chronic kidney disease, or unspecified chronic kidney disease; N18.9 Chronic kidney disease, unspecified; I50.9 Heart failure, unspecified; E78.00 Pure hypercholesterolemia, unspecified; E11.22 Type 2 diabetes mellitus with diabetic chronic kidney disease; Z79.4 Long term (current) use of insulin; Z79.899 Other long term (current) drug therapy
CPT/HCPCS: 36415; 71046; 80053; 82962; 85007; 85027; 87040; 93005; 96365; 99284; A9270; J0696; J7030